=== PATIENT | female | born 1950 | race Caucasian/White ===

== ENCOUNTER → 2017-03-15 | Outpatient (CLI) | payer MEDICARE ==
[~2017-03-15] MED LIST: CALTRATE-600 D600 MG PO; CORDARONE DPS200 MG PO; COUMADIN2.5 MG PO; GABAPENTIN300 MG PO; LOPRESSOR DPS12.5 MG PO; OYSTER SHELL C500 MG; SYNTHROID112 MCG PO; THERA1 EACH PO; TYLENOL ARTHRI650 MG PO
== END | disposition home or self-care (01) ==
LOC: RAD.S 14:58
DX: Z12.31 Encounter for screening mammogram for malignant neoplasm of breast (principal)